=== PATIENT | male | born 1980 | race Caucasian/White ===

== ENCOUNTER 2016-08-31 15:01 | Emergency (ER) | payer SELFPAY ==
[~2016-08-31] VITALS: Ht 190.5 cm; Wt 120.9 kg
[2016-08-31] MEDS ORDERED: ASPI-496 PO (16:08)
[2016-08-31] MEDS ORDERED: MULT-658 PO (16:08)
[2016-08-31] MEDS ORDERED: ASPIRIN 81 MG TABLET CHEW ONE (16:29)
[2016-08-31] MEDS ORDERED: ASPIRIN 81 MG TABLET CHEW PO ONE (16:30)
[2016-08-31 16:46] LABS: ASPARTATE AMINO TRANSFERASE 22 U/L (15-37); BLOOD UREA NITROGEN 17 mg/dL (7-18)
[2016-08-31 16:51] LABS: IS PT STATUS REG ER OR PRE ER? YES
[2016-08-31 17:42] VITALS: BP 132/90
== END 2016-08-31 17:46 | disposition home or self-care (01) ==
LOC: ED 15:56
DX: R07.89 Other chest pain (principal); R10.32 Left lower quadrant pain; F41.1 Generalized anxiety disorder; M94.0 Chondrocostal junction syndrome [Tietze]; Z87.891 Personal history of nicotine dependence
CPT/HCPCS: 36415; 71010; 80053; 83690; 84484; 85025; 93005; 99285

== ENCOUNTER 2016-09-12 15:48 | Emergency (ER) | payer MEDICAID ==
[~2016-09-12] VITALS: Ht 190.5 cm; Wt 119.3 kg
[~2016-09-12 15:48] MED LIST: ASPI-496 PO; MULT-658 PO
[2016-09-12 16:48] LABS: BLOOD UREA NITROGEN 15 mg/dL (7-18)
[2016-09-12] MEDS ORDERED: SODIUM CHLORIDE FLUSH 10ML SYR IVF ONE (17:00)
[2016-09-12 19:44] VITALS: BP 136/76
== END 2016-09-12 19:46 | disposition home or self-care (01) ==
LOC: ED 18:52
DX: K59.00 Constipation, unspecified (principal)
CPT/HCPCS: 36415; 74020; 74177; 80048; 82040; 83690; 85025

== ENCOUNTER 2017-05-27 19:16 | Emergency (ER) | payer MEDICAID ==
[~2017-05-27] VITALS: Ht 191.8 cm; Wt 127.9 kg
[2017-05-27 20:08] LABS: BASOPHILS # (AUTO) 0.03 x10^3/uL (0-0.1); BASOPHILS % (AUTO) 0 % (0-1); EOSINOPHILS % (AUTO) 1 % (1-7); LYMPHOCYTES # (AUTO) 2.94 x10^3/uL (1-3.4); LYMPHOCYTES % (AUTO) 41 % (22-44); MD NO; MEAN CORPUSCULAR HEMOGLOBIN 29.4 pg (27.5-34.5); MEAN CORPUSCULAR HGB CONC 33.8 g/dL (33.2-36.2); MEAN CORPUSCULAR VOLUME 86.9 fL (81-97); MEAN PLATELET VOLUME 9.2 fL (7.4-10.4); MONOCYTES % (AUTO) 6 % (2-9); NEUTROPHILS # (AUTO) 3.76 x10^3/uL (1.8-6.8); NEUTROPHILS % (AUTO) 52 % (42-75); PLATELET COUNT 283 x10^3/uL (130-400); RED BLOOD COUNT 5.55 x10^6/uL (4.38-5.82); RED CELL DISTRIBUTION WIDTH 12.7 % (9.4-14.8)
[2017-05-27 20:22] LABS: ALANINE AMINOTRANSFERASE 56 U/L (12-78); ALBUMIN 3.8 g/dL (3.4-5.0); ANION GAP 8 mmol/L (5-15); CALCIUM 8.3 mg/dL (8.5-10.1); CHLORIDE 105 mmol/L (98-107); CREATININE 0.98 mg/dL (0.7-1.3)
[2017-05-27 20:24] LABS: ALKALINE PHOSPHATASE 75 U/L (45-117); BILIRUBIN,TOTAL 0.6 mg/dL (0.2-1.0); TOTAL PROTEIN 7.4 g/dL (6.4-8.2)
[2017-05-27 20:40] LABS: MICROSCOPIC NOT IND
[2017-05-27 20:45] LABS: CULTURE INDICATED? NO
[2017-05-27 21:51] VITALS: BP 125/85
== END 2017-05-27 21:53 | disposition home or self-care (01) ==
LOC: ED 21:47
DX: R30.0 Dysuria (principal)
CPT/HCPCS: 36415; 74176; 80053; 81003; 82962; 85025; 99285